=== PATIENT | male | born 1960 | race Caucasian/White ===

== ENCOUNTER 2018-10-17 23:46 | Inpatient (IN) | payer BC ==
[~2018-10-17] VITALS: Ht 180.3 cm; Wt 86.6 kg
[2018-10-17 23:54] VITALS: BP_SYST 120
[2018-10-18] MEDS ORDERED: NACL 0.9% 1,000 ML IV ONE (00:36)
[2018-10-18] MEDS ORDERED: metroNIDAZOLE 500 mg/NS 100 ML IV ONE (00:45)
[2018-10-18] MEDS ORDERED: metroNIDAZOLE 500 MG TABLET PO ONE (00:45)
[2018-10-18] MEDS ORDERED: KETOROLAC TROMETHAMINE 30 MG VIAL IVP ONE (00:45)
[2018-10-18 00:56] LABS: BILIRUBIN,URINE NEGATIVE (NEGATIVE); CLARITY/URINE CLEAR (CLEAR); COLOR,URINE YELLOW (YELLOW); GLUCOSE,URINE NEGATIVE (NEGATIVE); KETONES,URINE TRACE (NEGATIVE); LEUKOCYTE ESTERASE ,URINE NEGATIVE (NEGATIVE); NITRITE, URINE NEGATIVE (NEGATIVE); PH,URINE 5.5 (5.0-8.0); PROTEIN URINE NEGATIVE (NEGATIVE); UROBILINOGEN,URINE 0.2 (0.2-1.0)
[2018-10-18 00:57] LABS: BLOOD, URINE TRACE (NEGATIVE)
[2018-10-18 01:05] LABS: BASOPHILS % (AUTO) 0.4 % (0.0-2.0); EOSINOPHILS % (AUTO) 0.4 % (0.0-4.0); HEMATOCRIT 42.6 % (36-54); HEMOGLOBIN 14.3 g/dL (14.0-18.0); LYMPHOCYTES # (AUTO) 1.3 K/uL (1.0-5.5); LYMPHOCYTES % (AUTO) 10.6 % (20.5-51.5); MEAN CORPUSCULAR HEMOGLOBIN 30 pg (27-31); MEAN CORPUSCULAR HGB CONC 34 % (32-36); MEAN CORPUSCULAR VOLUME 90 fL (79.0-98.0); MONOCYTES # (AUTO) 1.2 K/uL (0.0-1.0); MONOCYTES % (AUTO) 9.5 % (1.7-9.3); NEUTROPHILS # (AUTO) 9.9 K/uL (1.8-7.7); NEUTROPHILS % (AUTO) 79.1 % (40.0-70.0); PLATELET COUNT (AUTO) 185 K/uL (130-430); RED BLOOD CELL COUNT(AUTO) 4.74 MIL/uL (4.2-6.2); RED CELL DISTRIBUTION WIDTH 13.7 % (9.0-15.0); WHITE BLOOD COUNT (AUTO) 12.5 K/uL (4.8-10.8)
[2018-10-18 01:10] LABS: BACTERIA,URINE FEW /HPF (None Seen); RBC,URINE 0-3 /HPF (0-3); WBC,URINE 0-3 /HPF (0-3)
[2018-10-18 01:18] LABS: CALCIUM 9.2 mg/dL (8.4-11.0); CREATININE 1.17 mg/dL (0.55-1.30)
[2018-10-18 01:25] LABS: TOTAL BILIRUBIN 1.1 mg/dL (0.0-1.0)
[2018-10-18] MEDS ORDERED: SIMV40TA2 PO (01:54)
[2018-10-18] MEDS ORDERED: PRO40 PO (01:54)
[2018-10-18] MEDS ORDERED: GLUC100017 PO (01:54)
[2018-10-18] MEDS ORDERED: UBID50TA3 PO (01:54)
[2018-10-18] MEDS ORDERED: FINA1TAB PO (01:54)
[2018-10-18] MEDS ORDERED: MULT-1089 PO (01:54)
[2018-10-18] MEDS ORDERED: LOSA50TA3 PO (01:54)
[2018-10-18] MEDS ORDERED: ONDANSETRON HCL 4 MG/2 ML VIAL IVP PRN (02:45)
[2018-10-18] MEDS ORDERED: MORPHINE 4 MG/ML INJ. SYRINGE IVP PRN (02:45)
[2018-10-18] MEDS ORDERED: D5NS 1,000 ML IV ONE (02:45)
[2018-10-18 03:02] VITALS: BP_SYST 126
[2018-10-18] MEDS: PIPERACILLIN/TAZO 3.375 GM in NS 50 ML IV SCH ×3 (06:03→21:16)
[2018-10-18] MEDS ORDERED: PIPERACILLIN/TAZOBACTAM 3.375 GM/VIAL (ZOSYN) IV ONE (06:05)
[2018-10-18 08:02] VITALS: BP_SYST 119
[2018-10-18] MEDS: MORPHINE 2 MG/ML INJ. SYRINGE IVP PRN (08:20)
[2018-10-18] MEDS ORDERED: PIPERACILLIN/TAZO 3.375 GM in NS 50 ML IV SCH (09:00)
[2018-10-18 11:29] VITALS: BP_SYST 128
[2018-10-18] MEDS ORDERED: KETOROLAC TROMETHAMINE 30 MG VIAL IVP PRN (14:15)
[2018-10-18 15:35] VITALS: BP_SYST 121
[2018-10-18 20:13] VITALS: BP_SYST 125
[2018-10-18 23:53] VITALS: BP_SYST 99
[2018-10-19] MEDS: PIPERACILLIN/TAZO 3.375 GM in NS 50 ML IV SCH ×3 (05:13→21:16)
[2018-10-19 06:36] LABS: BASOPHILS % (AUTO) 0.5 % (0.0-2.0); EOSINOPHILS # (AUTO) 0.1 K/uL (0.0-0.4); EOSINOPHILS % (AUTO) 1.3 % (0.0-4.0); HEMATOCRIT 38.9 % (36-54); HEMOGLOBIN 12.9 g/dL (14.0-18.0); LYMPHOCYTES # (AUTO) 1.5 K/uL (1.0-5.5); LYMPHOCYTES % (AUTO) 15.6 % (20.5-51.5); MEAN CORPUSCULAR HEMOGLOBIN 30 pg (27-31); MEAN CORPUSCULAR HGB CONC 33 % (32-36); MEAN CORPUSCULAR VOLUME 91 fL (79.0-98.0); MONOCYTES # (AUTO) 0.7 K/uL (0.0-1.0); NEUTROPHILS # (AUTO) 7.1 K/uL (1.8-7.7); NEUTROPHILS % (AUTO) 75.6 % (40.0-70.0); PLATELET COUNT (AUTO) 167 K/uL (130-430); RED BLOOD CELL COUNT(AUTO) 4.29 MIL/uL (4.2-6.2); RED CELL DISTRIBUTION WIDTH 13.3 % (9.0-15.0); WHITE BLOOD COUNT (AUTO) 9.4 K/uL (4.8-10.8)
[2018-10-19 06:50] LABS: CALCIUM 8.8 mg/dL (8.4-11.0); CREATININE 0.93 mg/dL (0.55-1.30); POTASSIUM 3.8 mmol/L (3.5-5.1)
[2018-10-19 07:51] VITALS: BP_SYST 116
[2018-10-19] MEDS: PANTOPRAZOLE SODIUM 40 MG TAB PO SCH (08:31)
[2018-10-19] MEDS ORDERED: FINASTERIDE PO SCH (09:00)
[2018-10-19] MEDS ORDERED: LOSARTAN POTASSIUM 50 MG TABLET (COZAAR) PO SCH (09:00)
[2018-10-19 11:25] VITALS: BP_SYST 115
[2018-10-19 15:48] VITALS: BP_SYST 118
[2018-10-19 20:00] VITALS: BP_SYST 117
[2018-10-20 00:49] VITALS: BP_SYST 113
[2018-10-20] MEDS: MORPHINE 2 MG/ML INJ. SYRINGE IVP PRN (04:07)
[2018-10-20] MEDS: PIPERACILLIN/TAZO 3.375 GM in NS 50 ML IV SCH ×2 (05:01→12:58)
[2018-10-20 07:25] VITALS: BP_SYST 119
[2018-10-20] MEDS: PANTOPRAZOLE SODIUM 40 MG TAB PO SCH (09:04)
[2018-10-20] MEDS ORDERED: LEVAQUIN 500 MG PO (10:31)
[2018-10-20] MEDS ORDERED: METR500T PO (10:32)
[2018-10-20 10:33] VITALS: BP_SYST 133
[2018-10-20 11:36] VITALS: BP_SYST 133
== END 2018-10-20 13:45 | disposition home or self-care (01) | DRG 392 ==
LOC: SED 23:46 → SMU 10-18 02:42
PROVIDERS: ADMIT Internal Medicine Hospice and Palliative Medicine; ATTEND Internal Medicine Hospice and Palliative Medicine
DX: K57.32 Diverticulitis of large intestine without perforation or abscess without bleeding (principal); I10 Essential (primary) hypertension; K21.9 Gastro-esophageal reflux disease without esophagitis; E78.00 Pure hypercholesterolemia, unspecified; Z79.899 Other long term (current) drug therapy; Z90.49 Acquired absence of other specified parts of digestive tract
CPT/HCPCS: 36415; 80053; 81000-TC; 83605; 85025; 87040-TC; 96374; 99285; J1885; J2270; J2543; J7030; J7042

== ENCOUNTER 2019-02-21 23:21 | Inpatient (IN) | payer BC ==
[~2019-02-21] VITALS: Ht 180.3 cm; Wt 85.7 kg
[~2019-02-21 23:21] MED LIST: FINA1TAB PO; GLUC100017 PO; LEVAQUIN 500 MG PO; LOSA50TA3 PO; METR500T PO; MULT-1089 PO; PRO40 PO; SIMV40TA2 PO; UBID50TA3 PO
[2019-02-21 23:38] VITALS: BP_SYST 121
[2019-02-22] MEDS ORDERED: metroNIDAZOLE 500 mg/NS 100 ML IV ONE (00:30)
[2019-02-22] MEDS ORDERED: NACL 0.9% 1,000 ML IV ONE (00:30)
[2019-02-22] MEDS ORDERED: ONDANSETRON HCL 4 MG/2 ML VIAL IVP ONE (00:30)
[2019-02-22] MEDS ORDERED: MORPHINE 2 MG/ML INJ. SYRINGE IVP ONE (00:30)
[2019-02-22] MEDS ORDERED: ACETAMINOPHEN 325 MG TABLET PO ONE (00:30)
[2019-02-22 01:11] LABS: BASOPHILS % (AUTO) 0.1 % (0.0-2.0); EOSINOPHILS % (AUTO) 0.1 % (0.0-4.0); HEMATOCRIT 41.6 % (36-54); HEMOGLOBIN 14.5 g/dL (14.0-18.0); LYMPHOCYTES # (AUTO) 0.3 K/uL (1.0-5.5); LYMPHOCYTES % (AUTO) 5.3 % (20.5-51.5); MEAN CORPUSCULAR HEMOGLOBIN 31 pg (27-31); MEAN CORPUSCULAR HGB CONC 35 % (32-36); MEAN CORPUSCULAR VOLUME 89 fL (79.0-98.0); MONOCYTES # (AUTO) 0.1 K/uL (0.0-1.0); MONOCYTES % (AUTO) 1.7 % (1.7-9.3); NEUTROPHILS # (AUTO) 5.7 K/uL (1.8-7.7); NEUTROPHILS % (AUTO) 92.8 % (40.0-70.0); PLATELET COUNT (AUTO) 126 K/uL (130-430); RED BLOOD CELL COUNT(AUTO) 4.67 MIL/uL (4.2-6.2); RED CELL DISTRIBUTION WIDTH 13.2 % (9.0-15.0); WHITE BLOOD COUNT (AUTO) 6.1 K/uL (4.8-10.8)
[2019-02-22 01:26] LABS: CALCIUM 9.2 mg/dL (8.4-11.0); POTASSIUM 3.4 mmol/L (3.5-5.1)
[2019-02-22 01:32] LABS: PROTHROMBIN TIME 10.2 SECS (9.5-12.5)
[2019-02-22 01:40] LABS: TOTAL BILIRUBIN 1.3 mg/dL (0.0-1.0)
[2019-02-22] MEDS ORDERED: GLUC-140 PO (01:54)
[2019-02-22] MEDS ORDERED: UBID1CAP54 PO (01:54)
[2019-02-22] MEDS ORDERED: MULT-950 PO (01:54)
[2019-02-22 02:52] LABS: BILIRUBIN,URINE NEGATIVE (NEGATIVE); BLOOD, URINE NEGATIVE (NEGATIVE); CLARITY/URINE CLEAR (CLEAR); COLOR,URINE YELLOW (YELLOW); GLUCOSE,URINE NEGATIVE (NEGATIVE); KETONES,URINE TRACE (NEGATIVE); LEUKOCYTE ESTERASE ,URINE NEGATIVE (NEGATIVE); NITRITE, URINE NEGATIVE (NEGATIVE); PH,URINE 5.5 (5.0-8.0); PROTEIN URINE NEGATIVE (NEGATIVE); UROBILINOGEN,URINE 0.2 (0.2-1.0)
[2019-02-22 03:24] VITALS: BP_SYST 107
[2019-02-22] MEDS: NACL 0.9% 1,000 ML IV SCH ×3 (05:17→20:13)
[2019-02-22] MEDS: MORPHINE 2 MG/ML INJ. SYRINGE IVP PRN ×2 (05:30→10:31)
[2019-02-22] MEDS: metroNIDAZOLE 500 mg/NS 100 ML IV SCH ×3 (08:06→22:51)
[2019-02-22 08:10] VITALS: BP_SYST 117
[2019-02-22] MEDS ORDERED: ONDANSETRON HCL 4 MG/2 ML VIAL IVP PRN (09:45)
[2019-02-22] MEDS ORDERED: METOCLOPRAMIDE HCL 10 MG/2 ML VIAL IVP PRN (10:00)
[2019-02-22] MEDS ORDERED: LOSARTAN POTASSIUM 50 MG TABLET (COZAAR) PO ONE (10:00)
[2019-02-22 12:00] VITALS: BP_SYST 133
[2019-02-22] MEDS: ACETAMINOPHEN 325 MG TABLET PO PRN ×2 (14:53→20:47)
[2019-02-22 16:30] VITALS: BP_SYST 117
[2019-02-22 20:00] VITALS: BP_SYST 131
[2019-02-22] MEDS ORDERED: LEVOFLOXACIN 500 MG/D5W 100 ML IV SCH (21:00)
[2019-02-22] MEDS: SIMVASTATIN 40 MG TABLET PO SCH (21:00)
[2019-02-23] VITALS: BP_SYST 125
[2019-02-23] MEDS: MORPHINE 2 MG/ML INJ. SYRINGE IVP PRN ×4 (03:21→21:54)
[2019-02-23] MEDS: metroNIDAZOLE 500 mg/NS 100 ML IV SCH ×3 (05:59→21:43)
[2019-02-23 06:25] LABS: BASOPHILS % (AUTO) 0.2 % (0.0-2.0); EOSINOPHILS % (AUTO) 0.5 % (0.0-4.0); HEMATOCRIT 40.6 % (36-54); HEMOGLOBIN 13.7 g/dL (14.0-18.0); LYMPHOCYTES # (AUTO) 0.4 K/uL (1.0-5.5); LYMPHOCYTES % (AUTO) 7.4 % (20.5-51.5); MEAN CORPUSCULAR HEMOGLOBIN 30 pg (27-31); MEAN CORPUSCULAR HGB CONC 34 % (32-36); MEAN CORPUSCULAR VOLUME 90 fL (79.0-98.0); MONOCYTES # (AUTO) 0.5 K/uL (0.0-1.0); MONOCYTES % (AUTO) 7.5 % (1.7-9.3); NEUTROPHILS # (AUTO) 5.1 K/uL (1.8-7.7); NEUTROPHILS % (AUTO) 84.4 % (40.0-70.0); PLATELET COUNT (AUTO) 102 K/uL (130-430); RED BLOOD CELL COUNT(AUTO) 4.51 MIL/uL (4.2-6.2); RED CELL DISTRIBUTION WIDTH 13.2 % (9.0-15.0); WHITE BLOOD COUNT (AUTO) 6.1 K/uL (4.8-10.8)
[2019-02-23 06:40] LABS: CALCIUM 8.6 mg/dL (8.4-11.0); CREATININE 0.89 mg/dL (0.55-1.30); POTASSIUM 3.9 mmol/L (3.5-5.1); TOTAL BILIRUBIN 0.6 mg/dL (0.0-1.0)
[2019-02-23 07:40] VITALS: BP_SYST 122
[2019-02-23] MEDS: FINASTERIDE PO SCH (09:00)
[2019-02-23] MEDS: PIPERACILLIN/TAZO 3.375/DEX-IS 50 ML IV SCH ×4 (09:25→23:55)
[2019-02-23] MEDS: PANTOPRAZOLE SODIUM 40 MG TAB PO SCH (09:26)
[2019-02-23] MEDS: LOSARTAN POTASSIUM 50 MG TABLET (COZAAR) PO SCH (09:28)
[2019-02-23] MEDS ORDERED: GENTAMICIN SULFATE 200 MG in NS 100 ML IV ONE (10:15)
[2019-02-23 12:00] VITALS: BP_SYST 125
[2019-02-23] MEDS: NACL 0.9% 1,000 ML IV SCH (14:21)
[2019-02-23 16:59] VITALS: BP_SYST 124
[2019-02-23 20:18] VITALS: BP_SYST 125
[2019-02-23] MEDS: SIMVASTATIN 40 MG TABLET PO SCH (21:43)
[2019-02-24 01:27] VITALS: BP_SYST 122
[2019-02-24] MEDS: MORPHINE 2 MG/ML INJ. SYRINGE IVP PRN ×2 (05:17→23:17)
[2019-02-24] MEDS: PIPERACILLIN/TAZO 3.375/DEX-IS 50 ML IV SCH ×4 (05:23→23:31)
[2019-02-24] MEDS: metroNIDAZOLE 500 mg/NS 100 ML IV SCH (06:10)
[2019-02-24 07:35] VITALS: BP_SYST 121
[2019-02-24] MEDS: PANTOPRAZOLE SODIUM 40 MG TAB PO SCH (08:08)
[2019-02-24] MEDS: LOSARTAN POTASSIUM 50 MG TABLET (COZAAR) PO SCH (08:08)
[2019-02-24] MEDS: FINASTERIDE PO SCH (08:09)
[2019-02-24] MEDS: NACL 0.9% 1,000 ML IV SCH ×2 (08:09→23:22)
[2019-02-24] MEDS ORDERED: GENTAMICIN SULFATE 200 MG in NS 100 ML IV ONE (10:00)
[2019-02-24 12:51] VITALS: BP_SYST 117
[2019-02-24 16:47] VITALS: BP_SYST 120
[2019-02-24 20:15] VITALS: BP_SYST 105
[2019-02-24] MEDS: SIMVASTATIN 40 MG TABLET PO SCH (21:08)
[2019-02-25] MEDS: PIPERACILLIN/TAZO 3.375/DEX-IS 50 ML IV SCH ×3 (05:50→23:25)
[2019-02-25 08:00] VITALS: BP_SYST 120
[2019-02-25] MEDS: FINASTERIDE PO SCH (09:00)
[2019-02-25 09:04] LABS: BASOPHILS % (AUTO) 0.6 % (0.0-2.0); EOSINOPHILS # (AUTO) 0.3 K/uL (0.0-0.4); EOSINOPHILS % (AUTO) 3.7 % (0.0-4.0); HEMATOCRIT 42.1 % (36-54); HEMOGLOBIN 14.4 g/dL (14.0-18.0); LYMPHOCYTES # (AUTO) 1.3 K/uL (1.0-5.5); LYMPHOCYTES % (AUTO) 19.2 % (20.5-51.5); MEAN CORPUSCULAR HEMOGLOBIN 31 pg (27-31); MEAN CORPUSCULAR HGB CONC 34 % (32-36); MEAN CORPUSCULAR VOLUME 90 fL (79.0-98.0); MONOCYTES # (AUTO) 0.9 K/uL (0.0-1.0); MONOCYTES % (AUTO) 13.1 % (1.7-9.3); NEUTROPHILS # (AUTO) 4.4 K/uL (1.8-7.7); NEUTROPHILS % (AUTO) 63.4 % (40.0-70.0); PLATELET COUNT (AUTO) 139 K/uL (130-430); RED CELL DISTRIBUTION WIDTH 13.6 % (9.0-15.0); WHITE BLOOD COUNT (AUTO) 6.9 K/uL (4.8-10.8)
[2019-02-25] MEDS: PANTOPRAZOLE SODIUM 40 MG TAB PO SCH (09:26)
[2019-02-25] MEDS: LOSARTAN POTASSIUM 50 MG TABLET (COZAAR) PO SCH (09:27)
[2019-02-25 09:44] LABS: CALCIUM 8.9 mg/dL (8.4-11.0); CREATININE 1.05 mg/dL (0.55-1.30); POTASSIUM 4.2 mmol/L (3.5-5.1); TOTAL BILIRUBIN 0.7 mg/dL (0.0-1.0)
[2019-02-25 12:23] VITALS: BP_SYST 117
[2019-02-25] MEDS: NACL 0.9% 1,000 ML IV SCH ×2 (15:48→23:25)
[2019-02-25 17:13] VITALS: BP_SYST 125
[2019-02-25 20:58] VITALS: BP_SYST 123
[2019-02-25] MEDS: SIMVASTATIN 40 MG TABLET PO SCH (23:24)
[2019-02-26 01:00] VITALS: BP_SYST 135
[2019-02-26] MEDS: PIPERACILLIN/TAZO 3.375/DEX-IS 50 ML IV SCH (06:12)
[2019-02-26 06:37] LABS: BASOPHILS % (AUTO) 0.5 % (0.0-2.0); EOSINOPHILS # (AUTO) 0.3 K/uL (0.0-0.4); HEMATOCRIT 39.6 % (36-54); HEMOGLOBIN 13.7 g/dL (14.0-18.0); LYMPHOCYTES # (AUTO) 1.6 K/uL (1.0-5.5); LYMPHOCYTES % (AUTO) 22.3 % (20.5-51.5); MEAN CORPUSCULAR HEMOGLOBIN 31 pg (27-31); MEAN CORPUSCULAR HGB CONC 35 % (32-36); MEAN CORPUSCULAR VOLUME 89 fL (79.0-98.0); MONOCYTES % (AUTO) 14.2 % (1.7-9.3); NEUTROPHILS # (AUTO) 4.2 K/uL (1.8-7.7); PLATELET COUNT (AUTO) 146 K/uL (130-430); RED BLOOD CELL COUNT(AUTO) 4.44 MIL/uL (4.2-6.2); RED CELL DISTRIBUTION WIDTH 13.3 % (9.0-15.0); WHITE BLOOD COUNT (AUTO) 7.1 K/uL (4.8-10.8)
[2019-02-26 07:03] LABS: ALBUMIN 2.9 g/dL (3.4-4.8); CREATININE 0.95 mg/dL (0.55-1.30); POTASSIUM 4.2 mmol/L (3.5-5.1); TOTAL BILIRUBIN 0.6 mg/dL (0.0-1.0)
[2019-02-26] MEDS: PANTOPRAZOLE SODIUM 40 MG TAB PO SCH (08:41)
[2019-02-26] MEDS: LOSARTAN POTASSIUM 50 MG TABLET (COZAAR) PO SCH (08:42)
[2019-02-26] MEDS: FINASTERIDE PO SCH (08:43)
[2019-02-26] MEDS ORDERED: LEVO750T45 PO ×2 (10:18→10:20)
[2019-02-26] MEDS ORDERED: METR500T PO (10:23)
[2019-02-26] MEDS ORDERED: LACT1CAP72 PO (10:24)
[2019-02-26 10:34] VITALS: BP_SYST 134
[2019-02-26 11:45] VITALS: BP_SYST 134
[2019-02-26 11:47] VITALS: BP_SYST 134
== END 2019-02-26 11:32 | disposition home or self-care (01) | DRG 872 ==
LOC: SED 23:21 → SMU 02-22 02:00
PROVIDERS: ADMIT Internal Medicine Hospice and Palliative Medicine; ATTEND Internal Medicine Hospice and Palliative Medicine
DX: A41.50 Gram-negative sepsis, unspecified (principal); K57.92 Diverticulitis of intestine, part unspecified, without perforation or abscess without bleeding; I10 Essential (primary) hypertension; E78.5 Hyperlipidemia, unspecified; B96.20 Unspecified Escherichia coli [E. coli] as the cause of diseases classified elsewhere; K21.9 Gastro-esophageal reflux disease without esophagitis; E78.00 Pure hypercholesterolemia, unspecified; D69.6 Thrombocytopenia, unspecified; Z79.899 Other long term (current) drug therapy
CPT/HCPCS: 36415; 80053; 81003; 83605; 83690-TC; 84484; 85025; 85610-TC; 85730-TC; 87040-TC; 87186-TC; 93005; 96365; 96367; 96375; 99285; J1580; J1956; J2270; J2405; J2543; J3490; J7030

== ENCOUNTER 2021-02-04 07:37 | Inpatient (IN) | payer BC, SELFPAY ==
[~2021-02-04] VITALS: Ht 180.3 cm; Wt 89.4 kg
[~2021-02-04 07:37] MED LIST changes: +GLUC-140 PO; +LACT1CAP72 PO; -LEVAQUIN 500 MG PO; +LEVO750T45 PO; -MULT-1089 PO; +MULT-950 PO; +UBID1CAP54 PO; -UBID50TA3 PO
[2021-02-04] MEDS ORDERED: CEFAZOLIN SOD 2 GM in D5W 50 ML IV ONE (08:30)
[2021-02-04] MEDS ORDERED: HYDROmorphone 2 MG/ML VIAL IVP ONE (09:43)
[2021-02-04] MEDS ORDERED: WATER FOR IRRIGATION,STERILE 1,000 ML IRRIG.SOLN IR ONE (09:43)
[2021-02-04] MEDS ORDERED: SEVOFLURANE 15 MIN GAS INH ONE (09:43)
[2021-02-04] MEDS ORDERED: LR 1,000 ML IV.SOLN IV ONE (09:43)
[2021-02-04] MEDS ORDERED: LIDOCAINE 1% 10 MG/ML, 20 ML MDV INJ ONE (09:43)
[2021-02-04] MEDS ORDERED: NEOSTIGMINE METHYLSULFATE 1 MG/ML, 10 ML VIAL IVP ONE (09:43)
[2021-02-04] MEDS ORDERED: ROCURONIUM BROMIDE 10 MG/ML (ZEMURON) IV ONE (09:43)
[2021-02-04] MEDS ORDERED: METOCLOPRAMIDE HCL 10 MG/2 ML VIAL IVP ONE (09:43)
[2021-02-04] MEDS ORDERED: NS 1000 ML IV.SOLN IV ONE (09:43)
[2021-02-04] MEDS ORDERED: CEFAZOLIN 2 GM IVPB PREMIX 50 ML IV ONE (09:43)
[2021-02-04] MEDS ORDERED: PHENYLEPHRINE HCL 10 MG/ML VIAL (NEOSYNEPHRINE) IV ONE (09:43)
[2021-02-04] MEDS ORDERED: NS IRRIG SOLN 1000 ML IR ONE (09:43)
[2021-02-04] MEDS ORDERED: SUCCINYLCHOLINE CHLORIDE 20 MG/ML(QUELICIN) IVP ONE (09:43)
[2021-02-04] MEDS ORDERED: fentaNYL CITRATE/PF 100 MCG/2 ML AMP IVP ONE (09:43)
[2021-02-04] MEDS ORDERED: MEPERIDINE 100 MG INJ. 100 MG/ML VIAL IM ONE (09:43)
[2021-02-04] MEDS ORDERED: DEXAMETHASONE SOD PHOSPHATE 4 MG/ML VIAL IVP ONE (09:43)
[2021-02-04] MEDS ORDERED: BUPIVACAINE /PF 0.5% 30 ML VIAL INJ ONE (09:43)
[2021-02-04] MEDS ORDERED: ONDANSETRON HCL 4 MG/2 ML VIAL IVP ONE (09:43)
[2021-02-04] MEDS ORDERED: GLYCOPYRROLATE 0.2 MG/ML VIAL IJ ONE (09:43)
[2021-02-04] MEDS ORDERED: SIMV40TA2 PO (09:45)
[2021-02-04] MEDS ORDERED: UBID50TA3 PO (09:51)
[2021-02-04] MEDS ORDERED: FEXO180T94 PO (09:51)
[2021-02-04] MEDS ORDERED: HYDROmorphone 1 MG/ML INJ. CARTRIDGE IVP PRN (10:45)
[2021-02-04] MEDS ORDERED: MEPERIDINE HCL/PF 25 MG/ML DISP.SYRIN IVP PRN (10:45)
[2021-02-04] MEDS ORDERED: LR 1,000 ML IV SCH (10:45)
[2021-02-04] MEDS ORDERED: HYDROmorphone 2 MG/ML VIAL IVP PRN ×2 (10:45)
[2021-02-04] MEDS ORDERED: BUPIVACAINE LIPOSOME/PF 266 MG/20 ML VIAL INFIL ONE (12:17)
[2021-02-04] MEDS ORDERED: POLYMYXIN 500,000/BACIT.10,000 UNITS in NS IRR 1 L IR ONE (12:19)
[2021-02-04] MEDS ORDERED: MORPHINE 4 MG INJ. 4 MG/ML VIAL IVP PRN (14:15)
[2021-02-04] MEDS ORDERED: ZOLPIDEM TARTRATE 5 MG TABLET PO PRN (14:15)
[2021-02-04] MEDS ORDERED: ACETAMINOPHEN 325 MG TABLET PO PRN ×2 (14:15)
[2021-02-04] MEDS ORDERED: ONDANSETRON HCL 4 MG/2 ML VIAL IVP PRN (14:15)
[2021-02-04] MEDS ORDERED: NALOXONE HCL 0.4 MG/ML AMP (NARCAN) IVP PRN (14:15)
--- NOTE | 2021-02-04 15:15 | NUR ---
ADMISSION NOTE Received patient from ER via gurney FROM OR. Patient admitted with diagnosis of Recurrent sigmoid Diverticulitis. Patient is awake, alert, oriented X 4. Patient oriented to hospital room, call light, toileting, pain management and safety-teach back done. Patient informed that their room number is [id number]. Personal belongings checked and Belongings List documented. Call light within reach.
[2021-02-04] MEDS: LR 1,000 ML IV SCH (15:58)
[2021-02-04] MEDS: metroNIDAZOLE 500 mg/NS 100 ML IV SCH ×2 (15:58→22:03)
[2021-02-04] MEDS: CEFAZOLIN 1 GM IVPB PREMIX 50 ML IV SCH (17:21)
[2021-02-04 17:48] VITALS: BP_SYST 106
--- NOTE | 2021-02-04 18:45 | NUR ---
CLOSING NOTES: PATIENT RESTING IN BED. NO S/S OF ACUTE DISTRESS NOTED. DENIES ANY DISCOMFORT AT THIS TIME. FALL AND SAFETY MEASURES PROVIDED. CALL LIGHT WITHIN REACH.
[2021-02-04 19:00] VITALS: BP_SYST 106
[2021-02-04 20:00] VITALS: BP_SYST 106
[2021-02-04] MEDS: HYDROcodone/ACETAMIN 5-325 MG TAB (NORCO/ VICODIN) PO PRN (21:35)
[2021-02-05 02:01] VITALS: BP_SYST 99
[2021-02-05] MEDS: CEFAZOLIN 1 GM IVPB PREMIX 50 ML IV SCH (03:16)
[2021-02-05] MEDS: LR 1,000 ML IV SCH ×2 (03:18→10:15)
[2021-02-05] MEDS: HYDROcodone/ACETAMIN 5-325 MG TAB (NORCO/ VICODIN) PO PRN ×3 (03:30→13:45)
[2021-02-05 06:48] LABS: BASOPHILS % (AUTO) 0.2 % (0.0-2.0); EOSINOPHILS % (AUTO) 0.1 % (0.0-4.0); HEMATOCRIT 39.7 % (36-54); HEMOGLOBIN 13.7 g/dL (14.0-18.0); LYMPHOCYTES # (AUTO) 1.9 K/uL (1.0-5.5); MEAN CORPUSCULAR HEMOGLOBIN 31 pg (27-31); MEAN CORPUSCULAR HGB CONC 35 % (32-36); MEAN CORPUSCULAR VOLUME 90 fL (79.0-98.0); MONOCYTES # (AUTO) 0.9 K/uL (0.0-1.0); MONOCYTES % (AUTO) 9.5 % (1.7-9.3); NEUTROPHILS # (AUTO) 6.7 K/uL (1.8-7.7); NEUTROPHILS % (AUTO) 70.2 % (40.0-70.0); PLATELET COUNT (AUTO) 172 K/uL (130-430); RED BLOOD CELL COUNT(AUTO) 4.44 MIL/uL (4.2-6.2); RED CELL DISTRIBUTION WIDTH 13.5 % (9.0-15.0); WHITE BLOOD COUNT (AUTO) 9.6 K/uL (4.8-10.8)
[2021-02-05 06:56] LABS: CALCIUM 8.9 mg/dL (8.4-11.0); CREATININE 1.02 mg/dL (0.55-1.30); POTASSIUM 4.2 mmol/L (3.5-5.1)
[2021-02-05 08:00] VITALS: BP_SYST 127
[2021-02-05] MEDS ORDERED: PANTOPRAZOLE SODIUM 40 MG TAB PO SCH (09:00)
[2021-02-05] MEDS ORDERED: LOSARTAN POTASSIUM 50 MG TABLET (COZAAR) PO SCH (09:00)
[2021-02-05 12:43] VITALS: BP_SYST 107
[2021-02-05 16:00] VITALS: BP_SYST 111
--- NOTE | 2021-02-05 18:25 | NUR ---
Note Pt has been ambulating in hallway after Cameron catheter was dc'd at 10am, with at side. Pt was checked on q1' and PRN all shift for needs and care. Pt's bed in low position and bed alarm on all shift. Call light within reach.
[2021-02-05 18:59] VITALS: BP_SYST 130
--- NOTE | 2021-02-05 19:25 | NUR ---
CHANGE OF SHIFT; endorsed pt. for discharge. > Moiz was here. day shift willl make discharge instructions. will be here around 8 pm.
--- NOTE | 2021-02-05 20:00 | NUR ---
NOTES; IV was removed by nurse Yisel. paper works given and instructions. home in stable condition, wheeled to the lobby. waiting.
== END 2021-02-05 20:00 | disposition home or self-care (01) | DRG 331 ==
LOC: SMU 07:37
PROVIDERS: ADMIT Surgery; ATTEND Surgery
PROC: 8E0W4CZ Robotic Assisted Procedure of Trunk Region, Percutaneous Endoscopic Approach (ICD-10-PCS; 2021-02-04)
PROC: 0DBN4ZZ Excision of Sigmoid Colon, Percutaneous Endoscopic Approach (ICD-10-PCS; principal; 2021-02-04 09:43)
DX: K57.32 Diverticulitis of large intestine without perforation or abscess without bleeding (principal); Z20.822 Contact with and (suspected) exposure to COVID-19
CPT/HCPCS: 36415; 80048; 85025; 87081; 88305; 88307; 94010; 94760; C1727; C9290; E0190; J0330; J0690; J1100; J1170; J2001; J2175; J2370; J2405; J2710; J2765; J3010; J3490; J7030; J7060; J7120; U0003